=== PATIENT | female | born 1970 | race Two or more races ===

== ENCOUNTER 2022-09-01 16:23 | Emergency (ER) | payer MEDICAID ==
[~2022-09-01] VITALS: Ht 162.6 cm; Wt 80.0 kg
[~2022-09-01 16:23] MED LIST: LEVO-65 MT; METR-167 MT
[2022-09-01] MEDS ORDERED: MORPHINE SULFATE 4 MG/ML CPJ (NOT FOR IM USE) IV ONE (19:30)
[2022-09-01] MEDS ORDERED: SODIUM CHLORIDE 0.9% 1,000 ML IV ONE (19:30)
[2022-09-01] MEDS ORDERED: ONDANSETRON HCL 4MG/2ML INJ IV ONE (19:30)
[2022-09-01] MEDS ORDERED: FAMOTIDINE 20MG/2ML VIAL IV ONE (19:30)
[2022-09-01 19:32] LABS: BASOPHILS % 0.1 % (0.0-2.0); HEMATOCRIT. 39.9 % (36.0-48.0); HEMOGLOBIN. 13.2 g/dL (12.0-16.0); LYMPHOCYTES % 11.9 % (20.0-50.0); MEAN CORPUSCULAR VOLUME 87.3 fL (81.0-99.0); MONOCYTES % 4.3 % (2.0-8.0); NEUTROPHILS % 83.7 % (40.0-76.0); PLATELET 252 x1000/uL (130-400); RED BLOOD CELL COUNT 4.56 mill/uL (4.2-5.4); RED CELL DISTRIBUTION WIDTH 13.5 % (11.6-14.6)
[2022-09-01 19:41] LABS: PROTHROMBIN TIME 10.9 sec (9.6-11.0)
[2022-09-01 19:42] LABS: CHLORIDE 106 mEq/L (98-107)
[2022-09-01] MEDS ORDERED: MORP15TA67 MT (21:35)
[2022-09-01] MEDS ORDERED: IBUP-2028 MT (21:35)
[2022-09-01] MEDS ORDERED: TOPUD PO (21:35)
[2022-09-01 22:00] VITALS: BP 147/83
[2022-09-01 22:00] LABS: CLARITY URINE CLEAR (CLEAR); COLOR URINE YELLOW (YELLOW); KETONES URINE 2+ (NEGATIVE); LEUKOCYTE ESTERASE URINE NEGATIVE (NEGATIVE); NITRITE URINE NEGATIVE (NEGATIVE); OCCULT BLOOD URINE NEGATIVE (NEGATIVE); PH URINE >=9.0 (4.5-8.0); PROTEIN URINE TRACE (NEGATIVE); SPECIFIC GRAVITY URINE 1.019 (1.005-1.030); UROBILINOGEN URINE 0.2 E.U./dL (0.2-1.0)
== END 2022-09-01 22:45 | disposition home or self-care (01) ==
LOC: ER 16:23
DX: K80.20 Calculus of gallbladder without cholecystitis without obstruction (principal); K80.50 Calculus of bile duct without cholangitis or cholecystitis without obstruction; I10 Essential (primary) hypertension; Z79.899 Other long term (current) drug therapy
CPT/HCPCS: 36415; 76700; 80053; 81003; 83690; 85025; 85610; 86850; 86900; 86901; 96361; 96374; 96375; 99285; J2270; J2405; J3490; J7030; Z7610

== ENCOUNTER 2025-05-12 13:00 | Emergency (ER) | payer MEDICAID ==
[~2025-05-12] VITALS: Ht 154.9 cm; Wt 73.0 kg
[~2025-05-12 13:00] MED LIST changes: +IBUP-2028 MT; +MORP15TA67 MT; +TOPUD PO
[2025-05-12 13:27] VITALS: O2SAT 98
[2025-05-12 13:51] LABS: BASOPHILS % 0.8 % (0.0-2.0); EOSINOPHILS % 1.2 % (0.0-5.0); HEMATOCRIT. 40.1 % (36.0-48.0); HEMOGLOBIN. 13.0 g/dL (12.0-16.0); LYMPHOCYTES % 29.6 % (20.0-50.0); MEAN PLATELET VOLUME 7.9 fl (7.4-10.4); MONOCYTES % 10.2 % (2.0-8.0); NEUTROPHILS % 58.2 % (40.0-76.0); PLATELET 286 x1000/uL (130-400); RED BLOOD CELL COUNT 4.50 mill/uL (4.2-5.4); RED CELL DISTRIBUTION WIDTH 14.2 % (11.6-14.6)
[2025-05-12 14:19] LABS: CREATININE 0.8 mg/dL (0.6-1.0)
[2025-05-12 14:20] LABS: PROTEIN TOTAL 7.1 g/dL (6.0-8.3); UREA NITROGEN BLOOD 9 mg/dL (9-23)
[2025-05-12 14:21] LABS: ASPARTATE AMINOTRANSFERASE 85 IU/L (<34)
[2025-05-12 14:22] LABS: BILIRUBIN DIRECT 0.1 mg/dL (<=3.0); BILIRUBIN TOTAL 0.5 mg/dL (0.1-1.0)
[2025-05-12] MEDS ORDERED: ONDA-239 PO (15:24)
[2025-05-12] MEDS ORDERED: IBUP-1455 MT (15:24)
[2025-05-12] MEDS ORDERED: DICY20TA2 MT (15:24)
[2025-05-12] MEDS ORDERED: DICYCLOMINE HCL 20MG TABLET PO SCH (15:30)
[2025-05-12 15:32] VITALS: BP 146/96; PULSE 78; RESP 16; TEMP 37; O2SAT 96
[2025-05-12] MEDS: DICYCLOMINE HCL 10MG CAPSULE PO SCH (15:38)
[2025-05-12] MEDS: ACETAMINOPHEN 325MG TABLET PO ONE (15:38)
[2025-05-12] MEDS: ONDANSETRON 4MG ODT PO ONE (15:38)
== END 2025-05-12 15:44 | disposition home or self-care (01) ==
LOC: ER 13:23
DX: B34.9 Viral infection, unspecified (principal); R11.0 Nausea; R51.9 Headache, unspecified; I10 Essential (primary) hypertension
CPT/HCPCS: 99284; 80076; 80048; 83690; 85025; 36415; 93005; Q0162

== ENCOUNTER 2025-05-15 11:27 | Emergency (ER) | payer MEDICAID, MEDICARE ==
[~2025-05-15] VITALS: Ht 154.9 cm; Wt 107.0 kg
[~2025-05-15 11:27] MED LIST changes: +DICY20TA2 MT; +IBUP-1455 MT; +ONDA-239 PO
[2025-05-15 11:32] VITALS: O2SAT 98
[2025-05-15 12:17] LABS: CLARITY URINE CLEAR (CLEAR); COLOR URINE YELLOW (YELLOW); GLUCOSE URINE NEGATIVE (NEGATIVE); KETONES URINE NEGATIVE (NEGATIVE); LEUKOCYTE ESTERASE URINE 1+ (NEGATIVE); NITRITE URINE NEGATIVE (NEGATIVE); OCCULT BLOOD URINE NEGATIVE (NEGATIVE); PH URINE 5.0 (4.5-8.0); PROTEIN URINE NEGATIVE (NEGATIVE); SPECIFIC GRAVITY URINE 1.007 (1.005-1.030); UROBILINOGEN URINE 0.2 E.U./dL (0.2-1.0)
[2025-05-15 12:28] LABS: BACTERIA URINE 2+; RBC URINE 0-2 /hpf (0-2); SQUAMOUS EPITHELIAL CELL URINE 3+ /lpf (RARE/1+); YEAST URINE NONE SEEN
[2025-05-15 12:30] LABS: BASOPHILS % 0.5 % (0.0-2.0); EOSINOPHILS % 0.9 % (0.0-5.0); HEMATOCRIT. 39.6 % (36.0-48.0); HEMOGLOBIN. 12.9 g/dL (12.0-16.0); LYMPHOCYTES % 28.4 % (20.0-50.0); MEAN PLATELET VOLUME 8.8 fl (7.4-10.4); MONOCYTES % 9.4 % (2.0-8.0); NEUTROPHILS % 60.8 % (40.0-76.0); PLATELET 266 x1000/uL (130-400); RED BLOOD CELL COUNT 4.49 mill/uL (4.2-5.4); RED CELL DISTRIBUTION WIDTH 14.3 % (11.6-14.6)
[2025-05-15 12:36] LABS: CREATININE 0.8 mg/dL (0.6-1.0); UREA NITROGEN BLOOD 6 mg/dL (9-23)
[2025-05-15 12:39] LABS: HCG SCREEN NEGATIVE
[2025-05-15] MEDS ORDERED: SULF1TAB48 MT (12:46)
[2025-05-15 12:58] VITALS: BP 115/64; PULSE 67; RESP 16; TEMP 36.9; O2SAT 97
== END 2025-05-15 12:59 | disposition home or self-care (01) ==
LOC: ER 11:27
DX: B34.9 Viral infection, unspecified (principal); N39.0 Urinary tract infection, site not specified; R51.9 Headache, unspecified; I10 Essential (primary) hypertension; Z88.0 Allergy status to penicillin
CPT/HCPCS: 36415; 80048; 81003; 81025; 84703; 85025; 99283